=== PATIENT | female | born 1990 | race Caucasian/White ===

== ENCOUNTER 2017-03-12 08:57 | Emergency (ER) | payer OTHER ==
[2017-03-12 09:25] VITALS: BP 108/62
--- NOTE | 2017-03-12 09:34 | UC ---
Throat Pain/Nasal Demar HPI - HPI Summary HPI Summary: sore throat x 45 days + fever, chills, body aches, no cough , + pnd - History of Current Complaint Chief Complaint: UCRespiratory Stated Complaint: SORE THROAT Time Seen by Provider: 03/12/17 09:18 Hx Obtained From: Patient Hx Last Menstrual Period: 02/20/17 ?: No Onset/Duration: Gradual Onset, Lasting Days - 5, Still Present Severity: Moderate Cough: None Associated Signs & Symptoms: Positive: Fever. Negative: Drooling, Sinus Discomfort, Nasal Discharge, Rash - Allergies/Home Medications Allergies/Adverse Reactions: Allergies Allergy/AdvReac Type Severity Reaction Status Date / Time Lactose Intolerance (GI) AdvReac Abdominal Verified 03/12/17 09:04 Pain Home Medications: Home Medications Bcp 1 tab PO DAILY 03/12/17 [History] Fexofenadine (NF) [Geovanna 180 (NF)] 180 mg PO DAILY 03/12/17 [History Confirmed 03/12/17] Fluticasone NASAL SPRAY 50MCG* [Flonase NASAL SPRAY 50MCG*] 2 spray BOTH NARES DAILY 03/12/17 [History Confirmed 03/12/17] PMH/Surg Hx/FS Hx/Imm Hx Previously Healthy: Yes - Surgical History Surgical History: None - Family History Known Family History: Negative: Diabetes - Social History Alcohol Use: Occasionally Substance Use Type: None Smoking Status (MU): Never Smoked Tobacco Review of Systems Constitutional: Fever, Chills, Fatigue Skin: Negative Eyes: Negative ENT: Sore Throat Respiratory: Negative Cardiovascular: Negative Gastrointestinal: Negative All Other Systems Reviewed And Are Negative: Yes Physical Exam Triage Information Reviewed: Yes Appearance: Well-Appearing, No Pain Distress, Well-Nourished Vital Signs: Initial Vital Signs Temp 99.5 F 03/12/17 09:09 Pulse 91 03/12/17 09:09 Resp 16 03/12/17 09:09 BP 108/62 03/12/17 09:09 Pulse Ox 99 03/12/17 09:09 Vital Signs Reviewed: Yes Eye Exam: Normal Eyes: Positive: Conjunctiva Clear ENT: Positive: Normal ENT inspection, Hearing grossly normal, Pharynx normal, TMs normal. Negative: Pharyngeal erythema, Nasal congestion, Nasal drainage, TM bulging Neck: Positive: Supple, Nontender, No Lymphadenopathy Respiratory: Positive: Chest non-tender, Lungs clear, Normal breath sounds, No respiratory distress Cardiovascular: Positive: RRR, No Murmur, Pulses Normal Skin Exam: Normal Throat Pain/Nasal Course/Dx - Differential Dx/Diagnosis Provider Diagnoses: viral pharyngitis Discharge - Discharge Plan Condition: Stable Disposition: HOME Patient Education Materials: Pharyngitis (ED) Referrals: Marisol Ruiz [Primary Care Provider] - If Needed Additional Instructions: negative rapid strep viral sore throat, no need for antibiotics rest, fluid, Tylenol as needed for pain and fever follow up as needed
== END 2017-03-12 09:41 | disposition home or self-care (01) ==
LOC: UCCORT 08:57
DX: J02.8 Acute pharyngitis due to other specified organisms (principal)
CPT/HCPCS: 87651; 99201; G0463